=== PATIENT | female | born 1985 | race Caucasian/White ===

== ENCOUNTER 2018-07-24 10:30 | Outpatient (RCR) | payer BC | END 2018-08-12 | LOC: M PT 10:30 | DX: Z47.89 Encounter for other orthopedic aftercare (principal); M54.2 Cervicalgia | CPT/HCPCS: 97010 ==

== ENCOUNTER → 2018-07-31 | Outpatient (CLI) | payer BC | LOC: M RAD 06:30 | DX: M54.2 Cervicalgia (principal) ==

== ENCOUNTER → 2019-05-18 | Outpatient (REF) | payer BC | LOC: M SFHCLERA 09:48 | PROVIDERS: ATTEND Nurse Practitioner Family | DX: J02.9 Acute pharyngitis, unspecified (principal) ==

== ENCOUNTER → 2019-07-31 | Outpatient (CLI) | payer BC ==
--- NOTE | 2019-07-31 10:29 | REPVR ---
EXAM: MR Cervical Spine Without Contrast EXAM DATE/TIME: 07/31/2019 9:41 AM CLINICAL HISTORY: 34 years old, female; Pain; Cervicalgia TECHNIQUE: Imaging protocol: Multiplanar magnetic resonance images of the cervical spine without contrast. COMPARISON: MRI-Spine,Cervical without con 07/31/2018 7:16 AM FINDINGS: Vertebrae: A right convex spinal curve is observed. There is redemonstration of low T2 signal of the discs from C3-C6. Spinal cord: The spinal cord is normal. C2-C3: No significant disc disease. No significant spinal stenosis. C3-C4: The C3-C4 level demonstrates a small diffuse posterior disc herniation. There is no cord contact or nerve root compression. C4-C5: There is mild central prominence of the anulus at C4-C5 without cord contact or foraminal compromise. C5-C6: The C5-C6 level demonstrates a small diffuse posterior disc herniation. There is no cord contact or nerve root compression. C6-C7: No significant disc disease. No significant spinal stenosis. C7-T1: No significant disc disease. No significant spinal stenosis. Vertebral arteries: Expected flow voids in the vertebral arteries. Soft tissues: Unremarkable. IMPRESSION: 1. The C3-C4 level demonstrates a small diffuse posterior disc herniation. There is no cord contact or nerve root compression. 2. There is mild central prominence of the anulus at C4-C5 without cord contact or foraminal compromise. 3. The C5-C6 level demonstrates a small diffuse posterior disc herniation. There is no cord contact or nerve root compression. Electronically signed by: Eliud Garcia On 07/31/2019 10:29:11 AM
== END ==
LOC: M RAD 09:36
PROVIDERS: ATTEND Physician Assistant
DX: M50.21 Other cervical disc displacement, high cervical region (principal); M50.222 Other cervical disc displacement at C5-C6 level

== ENCOUNTER → 2019-08-13 | Outpatient (REF) | payer OTHER | LOC: M SFHCWAGY 17:23 | PROVIDERS: ATTEND Nurse Practitioner Women's Health | DX: Z01.419 Encounter for gynecological examination (general) (routine) without abnormal findings (principal); Z11.3 Encounter for screening for infections with a predominantly sexual mode of transmission; Z53.9 Procedure and treatment not carried out, unspecified reason ==

== ENCOUNTER → 2019-08-13 | Outpatient (CLI) | payer OTHER ==
--- NOTE | 2019-08-13 14:44 | REPMRS ---
Patient History The patient states she had a clinical breast exam in 08/2019. Patient is nulliparous. Family history of breast cancer at age 51 in maternal aunt, breast cancer at age 45 in paternal aunt. 3D TOMOSYNTHESIS WAS PERFORMED. Digital Woman Screen Mammo: August 13, 2019 - Exam #: [id number] Bilateral CC and MLO view(s) were taken. Technologist: Chaparrita Hernandez, Technologist FINDINGS: The breast tissue is heterogeneously dense. This may lower the sensitivity of mammography. There is no evidence of cancer on this mammogram. Assessment: BI-RADS/ACR category 2 mammogram. Benign Findings. Recommendation Routine screening mammogram of both breasts in 1 year (for women over age 40). This mammogram was interpreted with the aid of an FDA-approved computer-aided dectection system. THE LIFETIME RISK OF BREAST CANCER IS 27.1%, THEREFORE SUPPLEMENTAL SCREENING MRI OF THE BREASTS IS RECOMMENDED IN 6 MONTHS. Electronically Signed By: Santiago Ro MD 08/13/19 5077
== END ==
LOC: M WHC 13:44
PROVIDERS: ATTEND Family Medicine
DX: Z12.31 Encounter for screening mammogram for malignant neoplasm of breast (principal)
CPT/HCPCS: 77063; 77067; 87624; 87661; G0123; G0463

== ENCOUNTER → 2019-08-13 | Outpatient (REF) | payer OTHER ==
[2019-08-13 21:16] LABS: CHLAMYDIA DNA AMPLIFICATION NEGATIVE (NEGATIVE); GC DNA AMPLIFICATION NEGATIVE (NEGATIVE)
[2019-08-15 14:07] LABS: HPV HYBRID CAPTURE II Negative (Negative)
== END ==
LOC: M SFHCWAGY 14:17
PROVIDERS: ATTEND Nurse Practitioner Women's Health
DX: Z12.4 Encounter for screening for malignant neoplasm of cervix (principal)
CPT/HCPCS: 87624; 87661; G0123

== ENCOUNTER → 2020-08-27 | Outpatient (CLI) | payer SELFPAY | LOC: M LABSMTC 13:04 | PROVIDERS: ATTEND Pediatrics | DX: Z20.828 Contact with and (suspected) exposure to other viral communicable diseases (principal) | CPT/HCPCS: C9803; U0002 ==

== ENCOUNTER → 2020-09-04 | Outpatient (CLI) | payer OTHER ==
--- NOTE | 2020-09-04 16:36 | REPMRS ---
Patient History The patient states she has not had a clinical breast exam in over a year. Family history of breast cancer at age 51 in maternal aunt, breast cancer at age 45 in paternal aunt. 3D TOMOSYNTHESIS WAS PERFORMED. Voljumana breast density b. Digital Woman Screen Mammo: September 04, 2020 - Exam #: [id number] Bilateral CC and MLO view(s) were taken. Technologist: Vashti Meyer, Technologist Prior study comparison: August 13, 2019, bilateral digital woman screen mammo performed at [facility]. FINDINGS: The breast tissue is heterogeneously dense. This may lower the sensitivity of mammography. There has been no change in the appearance of the mammogram from the prior studies. There is a moderate amount of residual fibroglandular tissue which is fairly symmetric. There is no interval development of dominant mass, areas of architectural distortion, or clustered microcalcification typical of malignancy. Assessment: BI-RADS/ACR category 1 mammogram. Negative Mammogram. Recommendation Routine screening mammogram in 1 year (for women over age 40). This mammogram was interpreted with the aid of an FDA-approved computer-aided dectection system. THE LIFETIME RISK OF BREAST CANCER IS 27.0 %, THEREFORE SUPPLEMENTAL SCREENING MRI OF THE BREASTS IS RECOMMENDED IN 6 MONTHS. Electronically Signed By: Santiago Ro MD 09/04/20 [id number]
== END ==
LOC: M WHC 15:39
PROVIDERS: ATTEND Family Medicine
DX: Z12.31 Encounter for screening mammogram for malignant neoplasm of breast (principal)

== ENCOUNTER → 2020-10-19 | Outpatient (CLI) | payer BC ==
--- NOTE | 2020-10-19 11:42 | REPVR ---
PROCEDURE INFORMATION: Exam: MR Cervical Spine Without Contrast Exam date and time: 10/19/2020 11:08 AM Age: 35 years old Clinical indication: Neck pain; Additional info: Cervical spondylolithesis ? stenosis TECHNIQUE: Imaging protocol: Multiplanar magnetic resonance images of the cervical spine without contrast. COMPARISON: MRI-Spine,Cervical without con 07/31/2019 9:54 AM FINDINGS: Vertebrae: There is no fracture or listhesis. Normal vertebral body alignment and heights are preserved. Spinal cord: Normal signal. No cord compression. C2-C3: No significant disc disease. No significant spinal stenosis. C3-C4: There is a shallow disc osteophyte complex. There is mild facet hypertrophy. The spinal canal and neural foramina are patent. C4-C5: There is a shallow disc osteophyte complex. There is mild facet hypertrophy. The spinal canal and neural foramina are patent. C5-C6: There is a diffuse disc osteophyte complex. There is mild facet hypertrophy. There is mild left neural foraminal narrowing. C6-C7: There is a shallow disc osteophyte complex. There is moderate facet hypertrophy. There is a small right perineural cyst. The spinal canal and neural foramina are patent. C7-T1: No significant disc disease. No significant spinal stenosis. Vertebral arteries: Expected flow voids in the vertebral arteries. Soft tissues: Unremarkable. IMPRESSION: Mild degenerative disc disease and spondylosis without canal or neural foraminal compromise. Electronically signed by: Kalli Lujan On 10/19/2020 11:42:23 AM
== END ==
LOC: M RAD 10:34
PROVIDERS: ATTEND Physician Assistant
DX: M43.12 Spondylolisthesis, cervical region (principal)

== ENCOUNTER 2020-12-18 13:53 | Emergency (ER) | payer OTHER, BC ==
[~2020-12-18] VITALS: Ht 157.5 cm; Wt 83.4 kg
[2020-12-18 13:53] VITALS: BP 123/67
--- OUTSIDE RECORDS SUMMARY | 2020-12-18 13:59 | CCD ---
Author Author [facility] Organization [facility] Address Unknown Phone Unavailable Care Team Providers Care Branch Service Specialist Name Role Phone MCELHERAN, COLEMAN PA Unavailable Unavailable MCELHERAN, COLEMAN PA Unavailable Unavailable MCELHERAN, COLEMAN PA Unavailable Unavailable MCELHERAN, COLEMAN PA Unavailable Unavailable MCELHERAN, COLEMAN PA Unavailable Unavailable MCELHERAN, COELMAN PA Unavailable Unavailable MCELHERAN, COLEMAN PA Unavailable Unavailable MCELHERAN, COLEMAN PA Unavailable Unavailable MCELHERAN, COLEMAN PA Unavailable Unavailable MCELHERAN, COLEMAN PA Unavailable Unavailable MCELHERAN, COLEMAN PA Unavailable Unavailable MCELHERAN, COLEMAN PA Unavailable Unavailable MCELHERAN, COLEMAN PA Unavailable Unavailable MCELHERAN, COLEMAN PA Unavailable Unavailable MCELHERAN, COLEMAN PA Unavailable Unavailable MCELHERAN, COLEMAN PA Unavailable Unavailable MCELHERAN, COLEMAN PA Unavailable Unavailable MCELHERAN, COLEMAN PA Unavailable Unavailable MCELHERAN, COLEMAN PA Unavailable Unavailable MCELHERAN, COLEMAN PA Unavailable Unavailable MCELHERAN, COLEMAN PA Unavailable Unavailable MCELHERAN, COLEMAN PA Unavailable Unavailable MCELHERAN, COLEMAN PA Unavailable Unavailable MCELHERAN, COLEMAN PA Unavailable Unavailable MCELHERAN, COLEMAN PA Unavailable Unavailable MCELHERAN, COLEMAN PA Unavailable Unavailable MCELHERAN, COLEMAN PA Unavailable Unavailable MCELHERAN, COLEMAN PA Unavailable Unavailable Re-disclosure Warning The records that you are about to access may contain information from federally-assisted alcohol or drug abuse programs. If such information is present, then the following federally mandated warning applies: This information has been disclosed to you from records protected by federal confidentiality rules (42 CFR part 2). The federal rules prohibit you from making any further disclosure of this information unless further disclosure is expressly permitted by the written consent of the person to whom it pertains or as otherwise permitted by 42 CFR part 2. A general authorization for the release of medical or other information is NOT sufficient for this purpose. The Federal rules restrict any use of the information to criminally investigate or prosecute any alcohol or drug abuse patient.The records that you are about to access may contain highly sensitive health information, the redisclosure of which is protected by Article 27-F of the [facility] Public Health law. If you continue you may have access to information: Regarding HIV / AIDS; Provided by facilities licensed or operated by the [facility] Office of Mental Health; or Provided by the [facility] Office for People With Developmental Disabilities. If such information is present, then the following [facility] mandated warning applies: This information has been disclosed to you from confidential records which are protected by state law. State law prohibits you from making any further disclosure of this information without the specific written consent of the person to whom it pertains, or as otherwise permitted by law. Any unauthorized further disclosure in violation of state law may result in a fine or shelter sentence or both. A general authorization for the release of medical or other information is NOT sufficient authorization for further disc losure. Family History Family Member Name Family Member Gender Family Member Status Date o f Status Description Data Source(s) Unknown Male Problem [facility] ([facility]) Unknown Unknown Problem [facility] ([facility] Encounters Encounter Providers Location Date Indications Data Source(s ) Office Visit Attender: COLEMAN COURTNEY Physical Therapy 10/23/2020 10:00:00 AM EST [facility] ([facility]) Outpatient Attender: COLEMAN COURTNEY Physical Therapy 09/17/2020 12:30:00 PM EST [facility] ([facility]) Unknown [address] [facility] [address] 06/05/2020 12:00:00 AM EDT [facility]CW[facility] ([facility] Outpatient 04/14/2020 01:01:00 PM EDT [facility] 12/08/2019 09:36:00 PM EST [facility] Insurance Providers Payer name Policy type / Coverage type Policy ID Covered libertarian ID Covered libertarian's relationship to busby Policy Busby Plan Information [employer] [place] P[place] 302/307 [id number] SP [id number] OPTUM [facility] [id number] SP [id number] [employer] [place] PPO 302/307 [id number] SP [id number] SELF PAY [employer] [place] PPO 302/307 [id number] SP [id number] 'S ADMINISTRATION [id number] SP [id number] SELF PAY ONLY [id number] SP [id number] [facility] O [id number] S [id number] [facility] [id number] SP [id number] [place]/136[place] O [id number] S [id number] 'S ADMINISTRATION [id number] SP [id number] [facility]/136E O [id number] S [id number] [employer] BCBS B [id number] S VYS [id number] ANSI-Commercial [id number] ANSI-Commercial [id number] BS [place] Commercial [id number] Self [id number] BC[employer] [place] 306/806 [id number] SP [id number] [facility] [id number] SP [id number] [facility] [id number] BC/BS Of [place] Commercial Self Surgeries/Procedures Procedure Description Date Indications Data Source(s) RADEX SPINE CRV COMPL W/OBLQ&FLEX&/XTN STDS 09/17/2020 12:00:00 AM EST [facility] ([facility] )
--- OUTSIDE RECORDS SUMMARY | 2020-12-18 13:59 | CCD ---
Continuity of Care Document (CCD) Created on: 09/29/2020 Lora Nevarez External Reference #: [id number] : [id number] Sex: Female Author Author Lora [facility]WRIGHT P[facility]AMelodie Organization Unknown Address [address] [place] [address] Phone [phone] Care Team Providers Care Coverage Specialist Rn Name Role Phone Luisito Abreu MD AUTM [phone] Problems Description No Information Available Social History Type Date Description Comments Sex Unknown ETOH Use Occasionally consumes alcohol Tobacco Use Start: Unknown Denies Smoking Allergies, Adverse Reactions, Alerts Description No Known Drug Allergies Medications Active Medications SIG Qnty Indications Ordering Provide r Date Magnesium Capsules 1 every o ther day Unknown Vitamin B Complex Tablets 1 by mouth every day Unknown Vitamin D (Ergocalciferol) Capsules Unknown Propranolol HCL Tablets 1 by mouth every day Unknown Melatonin Capsules 1 by mouth every night Unknown Diphenhydramine HCL 25mg Tablets 2 tabs by mouth at bedtime to relieve itching Unknown Ranitidine HCL Tablets take one tablet by mouth twice a day Unknown Immunizations Description No Information Available Vital Signs Date Vital Result Comment 07/19/2018 11:52am Body Temperature 98.9 F Height 61 inches 5'1" Weight 177.38 lb BMI (Body Mass Index) 33.5 kg/m2 Results Description No Information Available Procedures Date Code Description Status 09/17/2020 58762 X-Ray Spine Cervical 6 Or More V iews Completed Medical Devices Description No Information Available Encounters Type Date Location Provider Dx Diagnosis Office Visit 09/17/2020 1:30p [place] Sharda Szymanski M50.30 Other cervical disc degeneration, unsp cervical region M43.12 Spondylolisthesis, cervical region Assessments Date Code Description Provider 09/17/2020 M50.30 Other cervical disc degeneration , unspecified cervical region Sharda Szymanski 09/17/2020 M43.12 Spondylolisthesis, cervical paloma on Sharda Szymanski Plan of Treatment 09/17/2020 - Sharda Szymanski* M50.30 Other cervical disc degeneration, unspecified cervical region * M43.12 Spondylolisthesis, cervical region* New Xrays:* MRI Cervical Spine, Scheduled: 10/16/20 * Follow up:* [facility] C[facility]sp[facility] results Functional Status Description No Information Available Mental Status Description No Information Available Referrals Refer to Dr Reason for Referral Status Appt Date Germán Cartwright PA MRI APPROVED PER [employer] FOR MRI OF CERVICAL SPINE (92606) TO RUDDY Dawson [address] [place] [address] [address] [place] [address] [phone]
--- OUTSIDE RECORDS SUMMARY | 2020-12-18 13:59 | CCD | Continuity of Care Document ---
Author Author oLra CARTWRIGHT P.AMelodie Organization Unknown Address [address] [place] [address] Phone [phone] Care Team Providers Care Freezer Worker Name Role Phone Luisito Abreu MD AUTM [phone] Problems Description No Information Available Social History [...] Available Procedures Date Code Description Status 09/17/2020 67683 X-Ray Spine Cervical 6 Or More V iews Completed Medical Devices Description No Information Available Encounters Type Date Location Provider Dx Diagnosis Office Visit 10/23/2020 11:00a [place] Sharda Szymanski M50.222 Other cervical disc displacement at C5-C6 level M50.321 Other cervical disc degenera tion at C4-C5 level M50.322 Other cervical disc degenera tion at C5-C6 level Office Visit 09/17/2020 1:30p [place] Sharda Szymanski M50.30 Other cervical disc degeneration, unsp cervical region M43.12 Spondylolisthesis, cervical region Assessments Date Code Description Provider 10/23/2020 M50.222 Other cervical disc displacement at C5-C6 level Sharda Szymanski 10/23/2020 M50.321 Other cervical disc degeneration at C4-C5 level Sharda Szymanski 10/23/2020 M50.322 Other cervical disc degeneration at C5-C6 level Sharda Szymanski 09/17/2020 M50.30 Other cervical disc degeneration , unspecified cervical region Sharda Szymanski 09/17/2020 M43.12 Spondylolisthesis, cervical paloma on Sharda Szymanski Plan of Treatment 09/17/2020 - Sharda Szymanski* M50.30 Other cervical disc degeneration, unspecified cervical region * M43.12 Spondylolisthesis, cervical region* Follow up:* with [facility] for C-spine MRI results Functional Status Description No Information Available Mental Status Description No Information Available Referrals Refer to Reason for Referral Status Appt Date Germán Cartwright PA MRI APPROVED PER [employer] FOR MRI OF CERVICAL SPINE (75705) TO RUDDY Dawson [address] [facility] [address] [place] [address] [phone]
--- OUTSIDE RECORDS SUMMARY | 2020-12-18 13:59 | CCD | Continuity of Care Document ---
Author Author Lora CARTWRIGHT P.AMelodie Organization Unknown Address [address] [place] [address] Phone [phone] Care Team Providers Care Fitting Room Operator Name Role Phone Luisito Abreu MD AUTM [phone] Problems Description No Information Available Social History [...] Available Procedures Date Code Description Status 09/17/2020 13400 X-Ray Spine Cervical 6 Or More V iews Completed Medical Devices Description No Information Available Encounters Type Date Location Provider Dx Diagnosis Office Visit 10/23/2020 11:00a [place] Sharda Szymanski M50.30 Other cervical disc degeneration, unsp cervical region M43.12 Spondylolisthesis, cervical region Office Visit 09/17/2020 1:30p [place] Sharda Szymanski M50.30 Other cervical disc degeneration, unsp cervical region M43.12 Spondylolisthesis, cervical region Assessments Date Code Description Provider 10/23/2020 M50.30 Other cervical disc degeneration , unspecified cervical region Sharda Szymanski 10/23/2020 M43.12 Spondylolisthesis, cervical paloma on Sharda Szymanski 09/17/2020 M50.30 Other cervical disc degeneration , unspecified cervical region Sharda Szymanski 09/17/2020 M43.12 Spondylolisthesis, cervical paloma on Sharda Szymanski Plan of Treatment 09/17/2020 - Sharda Szymanski* M50.30 Other cervical disc degeneration, unspecified cervical region * M43.12 Spondylolisthesis, cervical region* Follow up:* with [facility] for C-spine MRI results Functional Status Description No Information Available Mental Status Description No Information Available Referrals Refer to Reason for Referral Status Appt Date Germán Cartwright PA MRI APPROVED PER [employer] FOR MRI OF CERVICAL SPINE (99501) TO RUDDY Dawson [address] [place] [address] [address] [place] [address] [phone]
[2020-12-18] MEDS ORDERED: EQL50TAB2 PO (14:03)
[2020-12-18] MEDS ORDERED: CVS10CAP8 PO (14:03)
[2020-12-18] MEDS ORDERED: PROP20TA72 PO (14:03)
[2020-12-18] MEDS ORDERED: MAGN1CAP PO (14:03)
[2020-12-18] MEDS ORDERED: BENA25CA4 PO (14:03)
--- OUTSIDE RECORDS SUMMARY | 2020-12-18 14:45 | CCD ---
Author Author [facility] Organization [facility] Address Unknown Phone Unavailable Care Team Providers Care Lease Examiner Name Role Phone MCELHERAN, COLEMAN PA Unavailable [...] is protected by Article 27-F of the [facility] Public Health law. If you continue you may have access to information: Regarding HIV / AIDS; Provided by facilities licensed or operated by the [facility] Office of Mental Health; or Provided by the [facility] Office for People With Developmental Disabilities. If such information is present, then the following [facility] mandated warning applies: This information has [...] law may result in a fine or [place] health care facility sentence or both. A general authorization for the release of medical or other information is NOT sufficient authorization for further disc losure. Family History Family Member Name Family Member Gender Family Member Status Date o f Status Description Data Source(s) Unknown Male Problem [facility] ([facility]) Unknown Unknown Problem [facility] ([facility] Encounters Encounter Providers Location Date Indications Data Source(s ) Office Visit Attender: COLEMAN COURTNEY Physical Therapy 10/23/2020 10:00:00 AM EST [facility] ([facility]) Outpatient Attender: COLEMAN COURTNEY Physical Therapy 09/17/2020 12:30:00 PM EST [facility] ([facility]) Unknown [address] [facility] [address] 06/05/2020 12:00:00 AM EDT eCW1 ([facility]) Outpatient 04/14/2020 01:01:00 PM EDT [facility] 12/08/2019 09:36:00 PM EST [facility] Insurance Providers Payer name Policy type / Coverage type Policy ID Covered libertarian ID Covered libertarian's relationship to busby Policy Busby Plan Information 'S ADMINISTRATION [id number] SP [id number] [employer] [place] PPO 302/307 [id number] SP [id number] PMA MANAGEMENT [facility] [id number] SP [id number] OPT[facility] [id number] SP [id number] [employer] [place] PPO 302/307 [id number] SP [id number] SELF PAY [employer] [place] PPO 302/307 [id number] SP [id number] 'S ADMINISTRATION [id number] SP [id number] SELF PAY ONLY [id number] SP [id number] [place] O [id number] S [id number] 33 W[facility] [id number] SP [id number] [place] O [id number] S [id number] [place] O [id number] S [id number] [employer] BCBS B [id number] S VYS [id number] ANSI-Commercial [id number] ANSI-Commercial [id number] [employer] [id number] Self [id number] BC[employer] [place] 306/806 [id number] SP [id number] [facility]BA [facility] [id number] BC/BS Of [place] [employer] Self Surgeries/Procedures Procedure Description Date Indications Data Source(s) RADEX SPINE CRV COMPL W/OBLQ&FLEX&/XTN STDS 09/17/2020 12:00:00 AM EST [facility] ([facility] )
== END 2020-12-18 15:17 | disposition home or self-care (01) ==
LOC: M ED 13:53
DX: T23.031A Burn of unspecified degree of multiple right fingers (nail), not including thumb, initial encounter (principal); X58.XXXA Exposure to other specified factors, initial encounter; Z77.098 Contact with and (suspected) exposure to other hazardous, chiefly nonmedicinal, chemicals; Y92.234 Operating room of hospital as the place of occurrence of the external cause; Y99.0 Civilian activity done for income or pay; F43.10 Post-traumatic stress disorder, unspecified; Z79.899 Other long term (current) drug therapy

== ENCOUNTER → 2021-04-14 | Outpatient (CLI) | payer OTHER ==
[~2021-04-14] MED LIST: BENA25CA4 PO; EQL50TAB2 PO; MAGN1CAP PO; MELA10CA6 PO; PROHANCE 279.3MG/ML 15ML VIAL As Ordered ONE; PROHANCE 279.3MG/ML 5ML VIAL As Ordered ONE; PROP20TA72 PO
--- NOTE | 2021-04-15 09:03 | REP ---
INDICATION: HIGH RISK BREAST CA SCREENING. COMPARISON: Mammogram 09/04/2020. TECHNIQUE: Three Jaelyn MRI imaging was performed with a dedicated breast coil. Axial, coronal, and sagittal T1 and T2 weighted scans were obtained with and without fat saturation in the usual fashion. The study includes dynamically acquired post gadolinium-enhanced imaging with image subtraction. Maximum intensity projection and multi planar reformation imaging is included as well. This study is interpreted with the aid of inSparq, an FDA approved computer aided detection (CAD) software program, on a dedicated breast MRI workstation. The gadolinium enhancement dose is 16 mL of intravenous ProHance. FINDINGS: There is mild to moderate symmetrical fibroglandular tissue present bilaterally. No significantly enlarged lymph nodes are seen in either axilla. There are multiple subcentimeter cysts scattered throughout both breasts. There is mild bilateral background parenchymal enhancement. There is no suspicious enhancing mass or morphologic abnormality. IMPRESSION: BI-RADS category 2 benign bilateral breast MRI. Multiple subcentimeter cysts scattered throughout both breasts. No suspicious enhancing mass or morphologic abnormality. Yearly supplemental screening MRI of the breasts is recommended for patients with an elevated lifetime risk of breast cancer of 20% or greater, in addition to annual screening mammography, staggered every 6 months. <Electronically signed by Santiago Ro > 04/15/21 3503
== END ==
LOC: M RAD 14:56
PROVIDERS: ATTEND Family Medicine
DX: Z15.01 Genetic susceptibility to malignant neoplasm of breast (principal); Z80.3 Family history of malignant neoplasm of breast; N60.01 Solitary cyst of right breast; N60.02 Solitary cyst of left breast
CPT/HCPCS: A9576; C8908

== ENCOUNTER → 2021-05-06 | Outpatient (REF) ==
[~2021-05-06] MED LIST changes: -PROHANCE 279.3MG/ML 15ML VIAL As Ordered ONE; -PROHANCE 279.3MG/ML 5ML VIAL As Ordered ONE
== END ==
LOC: M LABSMTC 09:40
PROVIDERS: ATTEND Pediatrics
DX: Z11.52 Encounter for screening for COVID-19 (principal)

== ENCOUNTER → 2021-09-09 | Outpatient (CLI) | payer OTHER ==
--- NOTE | 2021-09-09 09:57 | REPMRS ---
Patient History The patient states she has not had a clinical breast exam in over a year. Patient is nulliparous. Family history of breast cancer at age 51 in maternal aunt, breast cancer at age 45 in paternal aunt. No Hormone Replacement Therapy Patient states no breast complaints today. Patient has signed MRS History Sheet. Digital Woman Screen Mammo: September 09, 2021 - Exam #: [id number] Bilateral CC and MLO view(s) were taken. Technologist: Maggi Flowers, Accounts Administrator Prior study comparison: September 04, 2020, bilateral digital woman screen mammo performed at [facility]. August 13, 2019, bilateral digital woman screen mammo performed at [facility]. FINDINGS: There are scattered fibroglandular densities. Screening. Digital screening (2D) mammography was performed bilaterally in the CC and MLO projections. Additionally, breast tomosynthesis (3D mammography) was performed bilaterally in the CC and MLO projections. Todays exam was compared to the prior exam/exams. By history, the patient has no complaints of a palpable breast abnormality or other significant breast complaints. The Volpara volumetric breast density category is B, there are scattered areas of fibroglandular densities. The breasts are unchanged in size and shape. There are no tyler-soft tissue densities or spiculated masses. There is no internal architectural distortion. There are no suspicious tyler-calcific clusters. Skin thickening or nipple retraction is not present. IMPRESSION: BI-RADS Category 2- Benign Findings. There is no evidence of malignant alteration of the breasts. Followup examination recommended in one year. The lifetime Tyrer-Cuzick score is 26.8% This mammogram was read with the assistance [facility],an FDA approved computer aided detection system for mammography. Due to a Tyrer Cuzick score of 20% or greater, MRI/whole breast screening ultrasound is warranted. Negative x-ray reports should not delay surgical consultation if a dominant or clinically suspicious mass is present. Not all breast cancers can be identified by mammography. Therefore, we recommend that you continue to perform regular breast self-examination and physical examination and then promptly contact your physician of any concerns or changes. Adenosis and dense breasts may obscure an underlying neoplasm. No significant changes when compared with prior studies. Assessment: BI-RADS/ACR category 2 mammogram. Benign Findings. Recommendation Routine screening mammogram of both breasts in 1 year. Electronically Signed By: Long Resendez MD 09/09/21 0999
== END ==
LOC: M WHC 07:45
PROVIDERS: ATTEND Family Medicine
DX: Z12.31 Encounter for screening mammogram for malignant neoplasm of breast (principal); Z80.3 Family history of malignant neoplasm of breast

== ENCOUNTER → 2022-01-28 | Outpatient (CLI) | payer OTHER ==
[2022-01-28 14:52] LABS: HEPATITIS C VIRUS ABY INDEX 0.2 INDEX (<0.8); HIV 1&2 SCREEN CENTAUR NEGATIVE (NEGATIVE)
== END ==
LOC: M PLALAB 10:59 → M LAB 10:59
PROVIDERS: ATTEND Advanced Practice Midwife
DX: Z01.411 Encounter for gynecological examination (general) (routine) with abnormal findings (principal); R87.610 Atypical squamous cells of undetermined significance on cytologic smear of cervix (ASC-US)
CPT/HCPCS: 36415; 86780; 86803; 87389; 87624; G0123

== ENCOUNTER → 2022-01-28 | Outpatient (REF) | payer OTHER | LOC: M PLALAB 09:41 | PROVIDERS: ATTEND Advanced Practice Midwife | DX: Z53.9 Procedure and treatment not carried out, unspecified reason (principal) ==

== ENCOUNTER → 2022-03-28 | Outpatient (CLI) | payer OTHER ==
[~2022-03-28] MED LIST changes: +PROHANCE 279.3MG/ML 15ML VIAL ONE; +PROHANCE 279.3MG/ML 5ML VIAL ONE
== END ==
LOC: M PLAIMG 14:43
PROVIDERS: ATTEND Family Medicine
DX: Z12.31 Encounter for screening mammogram for malignant neoplasm of breast (principal); Z15.01 Genetic susceptibility to malignant neoplasm of breast
CPT/HCPCS: A9576; C8908

== ENCOUNTER → 2022-09-13 | Outpatient (CLI) | payer OTHER ==
[~2022-09-13] MED LIST changes: -PROHANCE 279.3MG/ML 15ML VIAL ONE; -PROHANCE 279.3MG/ML 5ML VIAL ONE
== END ==
LOC: M WHC 09:49
PROVIDERS: ATTEND Family Medicine
DX: Z12.31 Encounter for screening mammogram for malignant neoplasm of breast (principal)

== ENCOUNTER → 2022-12-04 | Outpatient (CLI) | payer OTHER ==
[~2022-12-04] MED LIST changes: +BIOT2500 PO; +CVS5000S2 PO; +MAGN400C PO; +METH-1164 PO; +OMEP40CA5; +PROBCAP14 PO; +TRAZ-252
== END ==
LOC: M LABSMTC 10:41
PROVIDERS: ATTEND Anesthesiology
DX: Z01.812 Encounter for preprocedural laboratory examination (principal); Z20.822 Contact with and (suspected) exposure to COVID-19

== ENCOUNTER 2022-12-07 08:25 | Day surgery (SDC) | payer OTHER ==
[~2022-12-07] VITALS: Ht 157.5 cm; Wt 71.8 kg
[~2022-12-07 08:25] MED LIST changes: +NS 1,000 ML IV ONE
[2022-12-07] MEDS ORDERED: fentaNYL 100 MCG/2 ML INJECTION As Ordered ONE (09:05)
[2022-12-07] MEDS ORDERED: propofoL 200 MG/20 ML VIAL As Ordered ONE ×2 (09:05→09:09)
[2022-12-07] MEDS ORDERED: ONDANSETRON 4MG 2ML VIAL As Ordered ONE (09:05)
[2022-12-07] MEDS ORDERED: LIDOCAINE 2% 100MG/5ML SDV (FOR ANES.) As Ordered ONE (09:05)
[2022-12-07 10:06] VITALS: BP 120/83
== END 2022-12-07 10:08 | disposition home or self-care (01) ==
LOC: M OPP 08:25
PROVIDERS: ATTEND Surgery
DX: K57.30 Diverticulosis of large intestine without perforation or abscess without bleeding (principal); K30 Functional dyspepsia; Z79.3 Long term (current) use of hormonal contraceptives; Z79.899 Other long term (current) drug therapy; G43.909 Migraine, unspecified, not intractable, without status migrainosus
CPT/HCPCS: 43239; 45380; 88305; J2405

== ENCOUNTER → 2023-05-01 | Outpatient (CLI) | payer OTHER ==
[~2023-05-01] MED LIST changes: -NS 1,000 ML IV ONE; +PROHANCE 279.3MG/ML 15ML VIAL ONE
== END ==
LOC: M PLAIMG 07:50
PROVIDERS: ATTEND Nurse Practitioner Family
DX: Z12.39 Encounter for other screening for malignant neoplasm of breast (principal)
CPT/HCPCS: A9576; C8908

== ENCOUNTER → 2023-12-08 | Outpatient (CLI) | payer OTHER ==
[~2023-12-08] MED LIST changes: -PROHANCE 279.3MG/ML 15ML VIAL ONE
== END ==
LOC: M WHC 14:11
PROVIDERS: ATTEND Nurse Practitioner Family
DX: Z12.31 Encounter for screening mammogram for malignant neoplasm of breast (principal)

== ENCOUNTER → 2024-06-10 | Outpatient (CLI) | payer OTHER ==
[~2024-06-10] MED LIST changes: +PROHANCE 279.3MG/ML 15ML VIAL As Ordered ONE
== END ==
LOC: M RAD 10:12
PROVIDERS: ATTEND Nurse Practitioner Family
DX: Z12.39 Encounter for other screening for malignant neoplasm of breast (principal); Z80.3 Family history of malignant neoplasm of breast
CPT/HCPCS: A9576; C8908

== ENCOUNTER → 2024-07-22 | Outpatient (CLI) | payer OTHER ==
[~2024-07-22] MED LIST changes: -PROHANCE 279.3MG/ML 15ML VIAL As Ordered ONE
[2024-07-22 13:17] LABS: HEMATOCRIT 41.9 % (36.0-47.0); MEAN CORPUSCULAR HEMOGLOBIN 30.8 pg (27.0-33.0); MEAN CORPUSCULAR HGB CONC 33.4 g/dl (32.0-36.5); MEAN CORPUSCULAR VOLUME 92.3 fl (80.0-96.0); PLATELET COUNT, AUTOMATED 365 10^3/uL (150-450); RED BLOOD COUNT 4.54 10^6/uL (4.00-5.40); WHITE BLOOD COUNT 9.2 10^3/uL (4.0-10.0)
[2024-07-22 13:47] LABS: C REACTIVE PROTEIN QUANTITATIV < 0.40 MG/DL (<1.0)
[2024-07-22 13:49] LABS: ALBUMIN 3.9 G/DL (3.2-5.2); ALKALINE PHOSPHATASE 73 U/L (46-116); ALT/SGPT 27 U/L (7.0-40); AST/SGOT 14 U/L (<34); BILIRUBIN,TOTAL 0.5 MG/DL (0.3-1.2); BLOOD UREA NITROGEN 13 MG/DL (9-23); CALCIUM LEVEL 9.4 MG/DL (8.5-10.1); CARBON DIOXIDE LEVEL 26 MMOL/L (20-31); CHLORIDE LEVEL 106 MMOL/L (98-107); CREATININE FOR GFR 0.73 MG/DL (0.55-1.30); GLOMERULAR FILTRATION RATE > 60.0 (>58); GLUCOSE, FASTING 86 MG/DL (60-100); POTASSIUM SERUM 4.3 MMOL/L (3.5-5.1); SODIUM LEVEL 138 MMOL/L (136-145); TOTAL PROTEIN 7.2 G/DL (5.7-8.2)
== END ==
LOC: M LAB 12:26
PROVIDERS: ATTEND Surgery
DX: R10.9 Unspecified abdominal pain (principal); R14.0 Abdominal distension (gaseous)

== ENCOUNTER → 2024-07-30 | Outpatient (CLI) | payer OTHER ==
[~2024-07-30] MED LIST changes: +GASTROGRAFIN SOLUTION 30ML ONE; +ISOVUE-370 76% 100ML VIAL ONE
== END ==
LOC: M PLAIMG 09:23
PROVIDERS: ATTEND Surgery
DX: R10.9 Unspecified abdominal pain (principal); R14.0 Abdominal distension (gaseous); K57.30 Diverticulosis of large intestine without perforation or abscess without bleeding; K56.41 Fecal impaction; K76.0 Fatty (change of) liver, not elsewhere classified; R16.0 Hepatomegaly, not elsewhere classified
CPT/HCPCS: 74177; Q9963; Q9967

== ENCOUNTER → 2024-08-05 | Outpatient (REF) | payer OTHER ==
[~2024-08-05] MED LIST changes: -GASTROGRAFIN SOLUTION 30ML ONE; -ISOVUE-370 76% 100ML VIAL ONE
== END ==
LOC: M LAB REF 12:32
PROVIDERS: ATTEND Surgery
DX: R10.9 Unspecified abdominal pain (principal); R14.0 Abdominal distension (gaseous)

== ENCOUNTER → 2024-12-17 | Outpatient (CLI) | payer OTHER | LOC: M WHC 13:20 | PROVIDERS: ATTEND Registered Nurse | DX: Z12.31 Encounter for screening mammogram for malignant neoplasm of breast (principal) ==

== ENCOUNTER → 2025-01-22 | Outpatient (CLI) | payer OTHER ==
[2025-01-22 16:53] LABS: HEMATOCRIT 40.3 % (36.0-47.0); MEAN CORPUSCULAR HEMOGLOBIN 30.3 pg (27.0-33.0); MEAN CORPUSCULAR HGB CONC 32.3 g/dl (32.0-36.5); MEAN CORPUSCULAR VOLUME 93.9 fl (80.0-96.0); PLATELET COUNT, AUTOMATED 399 10^3/uL (150-450); RED BLOOD COUNT 4.29 10^6/uL (4.00-5.40); WHITE BLOOD COUNT 9.7 10^3/uL (4.0-10.0)
[2025-01-22 17:03] LABS: ERYTHROCYTE SEDIMENTATION RATE 39 mm/hr (0-20)
[2025-01-22 17:22] LABS: ALBUMIN 3.5 G/DL (3.2-5.2); ALKALINE PHOSPHATASE 53 U/L (35-104); ALT/SGPT 17 U/L (7.0-40); AST/SGOT 15 U/L (<34); BILIRUBIN,DIRECT < 0.1 MG/DL (<0.4); BILIRUBIN,TOTAL 0.2 MG/DL (0.3-1.2); C REACTIVE PROTEIN QUANTITATIV 1.21 MG/DL (<1.0); TOTAL PROTEIN 7.5 G/DL (5.7-8.2)
[2025-01-22 17:24] LABS: THYROID STIMULATING HORMONE 4.119 uIU/ML (0.55-4.78)
== END ==
LOC: M RAD 15:49
PROVIDERS: ATTEND Internal Medicine Gastroenterology
DX: R10.13 Epigastric pain (principal); R19.4 Change in bowel habit; R14.0 Abdominal distension (gaseous)

== ENCOUNTER → 2025-02-01 | Outpatient (CLI) | payer OTHER | LOC: M LAB 12:50 | PROVIDERS: ATTEND Internal Medicine Gastroenterology | DX: R10.13 Epigastric pain (principal); R19.4 Change in bowel habit; R14.0 Abdominal distension (gaseous) ==

== ENCOUNTER → 2025-07-31 | Outpatient (CLI) | payer OTHER ==
[~2025-07-31] MED LIST changes: -EQL50TAB2 PO; +VITA1TAB82 PO
== END ==
LOC: M LAB 16:03
PROVIDERS: ATTEND Physician Assistant
DX: R19.4 Change in bowel habit (principal); R14.0 Abdominal distension (gaseous); K92.1 Melena; R11.2 Nausea with vomiting, unspecified

== ENCOUNTER → 2025-08-26 | Outpatient (CLI) | payer OTHER ==
[~2025-08-26] MED LIST changes: +PROHANCE 279.3MG/ML 15ML VIAL ONE
== END ==
LOC: M PLAIMG 15:14
PROVIDERS: ATTEND Registered Nurse
DX: R92.30 Dense breasts, unspecified (principal); Z80.3 Family history of malignant neoplasm of breast; R92.2 Inconclusive mammogram
CPT/HCPCS: A9576; C8908

== ENCOUNTER → 2025-09-29 | Outpatient (CLI) | payer OTHER ==
[~2025-09-29] MED LIST changes: -PROHANCE 279.3MG/ML 15ML VIAL ONE
== END ==
LOC: M RAD 15:11
PROVIDERS: ATTEND Physician Assistant
DX: R00.2 Palpitations (principal)

== ENCOUNTER → 2025-10-02 | Outpatient (CLI) | payer OTHER | LOC: M CARPUL 15:49 | PROVIDERS: ATTEND Physician Assistant | DX: R07.9 Chest pain, unspecified (principal) ==

== ENCOUNTER → 2025-10-16 | Outpatient (CLI) | payer OTHER ==
[~2025-10-16] MED LIST changes: +ISOVUE-370 76% 100 ML VIAL As Ordered ONE
== END ==
LOC: M RAD 17:07
PROVIDERS: ATTEND Physician Assistant
DX: R93.3 Abnormal findings on diagnostic imaging of other parts of digestive tract (principal); R19.4 Change in bowel habit
CPT/HCPCS: 74177; Q9967